=== PATIENT | female | born 1960 | race Caucasian/White ===

== ENCOUNTER 2023-10-29 15:25 | Observation (INO) | payer OTHER, SELFPAY ==
[~2023-10-29] VITALS: Ht 170.2 cm; Wt 74.2 kg
[2023-10-29] MEDS: IPRATROPIUM 0.5MG/ALBUTEROL 2.5MG INH SOL UD 3ML (DUONEB) NEB ONE (16:07)
[2023-10-29 16:15] LABS: ABG BASE EXCESS 1.9 (-2.0-2.0); ABG O2 SATURATION 90.9 % (95.0-99.0); ABG PARTIAL PRESSURE CO2 34.2 mmHg (35.0-45.0); ABG PARTIAL PRESSURE O2 56.8 mmHg (75.0-100.0); ABG pH (ARTERIAL) 7.481 UNITS (7.350-7.450)
[2023-10-29 16:23] LABS: BASO # 0.1 10^3/uL (0.0-0.2); BASO % 0.4 % (0.0-1.0); EOS # 0.1 10^3/uL (0.0-0.5); EOS % 0.4 % (0.0-3.0); HEMATOCRIT 37.8 % (36.0-47.0); HEMOGLOBIN 12.6 g/dl (12.0-15.5); LYMPH % 14.2 % (24.0-44.0); MEAN CORPUSCULAR HEMOGLOBIN 29.7 pg (27.0-33.0); MEAN CORPUSCULAR HGB CONC 33.3 g/dl (32.0-36.5); MEAN CORPUSCULAR VOLUME 89.2 fl (80.0-96.0); MONO % 6.8 % (2.0-8.0); NEUTROPHILS # 11.1 10^3/uL (1.5-8.5); NEUTROPHILS % 77.8 % (36.0-66.0); PLATELET COUNT, AUTOMATED 365 10^3/uL (150-450); RED BLOOD COUNT 4.24 10^6/uL (4.00-5.40); WHITE BLOOD COUNT 14.2 10^3/uL (4.0-10.0)
[2023-10-29 16:41] LABS: INR 1.04; PARTIAL THROMBOPLASTIN TIME 28.6 SECONDS (24.8-34.2); PROTHROMBIN TIME 13.3 SECONDS (12.5-14.5)
[2023-10-29 16:47] LABS: CK-MB VALUE MASS < 1.0 NG/ML (<3.6)
[2023-10-29 16:49] LABS: ALBUMIN 3.5 G/DL (3.2-5.2); ALKALINE PHOSPHATASE 111 U/L (46-116); ALT/SGPT 17 U/L (7.0-40); AST/SGOT 12 U/L (<34); BILIRUBIN,DIRECT 0.2 MG/DL (<0.4); BILIRUBIN,TOTAL 0.5 MG/DL (0.3-1.2); BLOOD UREA NITROGEN 7 MG/DL (9-23); CALCIUM LEVEL 9.3 MG/DL (8.3-10.6); CARBON DIOXIDE LEVEL 28 MMOL/L (20-31); CHLORIDE LEVEL 104 MMOL/L (98-107); CPK CREATINE PHOSPHOKINASE 68 U/L (34-145); CREATININE FOR GFR 0.48 MG/DL (0.55-1.30); GLOMERULAR FILTRATION RATE > 60.0 (>45); GLUCOSE, FASTING 119 MG/DL (74-106); MB/CK RELATIVE INDEX 1.47 (< OR =4); POTASSIUM SERUM 4.1 MMOL/L (3.5-5.1); SODIUM LEVEL 134 MMOL/L (136-145); TOTAL PROTEIN 7.2 G/DL (5.7-8.2)
[2023-10-29 16:51] LABS: FREE T4 1.21 NG/DL (0.89-1.76); THYROID STIMULATING HORMONE 0.456 uIU/ML (0.55-4.78)
[2023-10-29 17:02] LABS: RSV AMPLIFICATION NEGATIVE (NEGATIVE)
[2023-10-29] MEDS ORDERED: IPRATROPIUM 0.5MG/ALBUTEROL 2.5MG INH SOL UD 3ML (DUONEB) NEB PRN (17:30)
[2023-10-29] MEDS ORDERED: ISOVUE-370 76% 100ML VIAL As Ordered ONE (17:49)
[2023-10-29] MEDS ORDERED: methylPREDNISolone 125MG 2ML VIAL IV ONE (18:00)
[2023-10-29 18:02] LABS: PROCALCITONIN <0.04 ng/ml
[2023-10-29] MEDS: methylPREDNISolone 125MG 2ML VIAL IV ONE (18:07)
[2023-10-29] MEDS: cefTRIAXone SOD 2 GM in D5W MINI-BAG PLUS 50 ML IV ONE (18:08)
[2023-10-29] MEDS ORDERED: ALEV220T22 PO (18:10)
[2023-10-29] MEDS: SODIUM CHLORIDE 0.9% 1000ML IV STA (18:10)
[2023-10-29] MEDS ORDERED: HOME MED LIST COMPLETE! XX SCH (18:10)
[2023-10-29] MEDS: AZITHROMYCIN INJ 500 MG, VIAL MATE ADAPTER 1 EACH in NS 250 ML IV ONE (18:10)
[2023-10-29 19:16] VITALS: BP 170/98; TEMP 99.5; O2SAT 93
[2023-10-29] MEDS: IPRATROPIUM 0.5MG/ALBUTEROL 2.5MG INH SOL UD 3ML (DUONEB) NEB SCH (20:42)
[2023-10-29] MEDS ORDERED: ACETAMINOPHEN TAB 650MG DOSE (2X325MG) PO PRN (21:10)
[2023-10-29] MEDS: amLODIPine 5 MG TAB PO ONE (21:17)
[2023-10-30 04:00] VITALS: BP 136/71; TEMP 98.4; O2SAT 90
[2023-10-30 06:06] LABS: HEMATOCRIT 33.4 % (36.0-47.0); HEMOGLOBIN 11.1 g/dl (12.0-15.5); MEAN CORPUSCULAR HEMOGLOBIN 29.6 pg (27.0-33.0); MEAN CORPUSCULAR HGB CONC 33.2 g/dl (32.0-36.5); MEAN CORPUSCULAR VOLUME 89.1 fl (80.0-96.0); PLATELET COUNT, AUTOMATED 344 10^3/uL (150-450); RED BLOOD COUNT 3.75 10^6/uL (4.00-5.40)
[2023-10-30 06:26] LABS: BLOOD UREA NITROGEN 6 MG/DL (9-23); CALCIUM LEVEL 8.3 MG/DL (8.3-10.6); CARBON DIOXIDE LEVEL 25 MMOL/L (20-31); CHLORIDE LEVEL 107 MMOL/L (98-107); CREATININE FOR GFR 0.43 MG/DL (0.55-1.30); GLOMERULAR FILTRATION RATE > 60.0 (>45); GLUCOSE, FASTING 163 MG/DL (74-106); SODIUM LEVEL 139 MMOL/L (136-145)
[2023-10-30] MEDS: ENOXAPARIN 40MG/0.4ML SYRINGE (J1650 PER 10MG) SC SCH (08:03)
[2023-10-30] MEDS: predniSONE 20 MG TAB PO SCH (08:03)
[2023-10-30 08:08] VITALS: BP 135/72
[2023-10-30] MEDS: amLODIPine 5 MG TAB PO SCH (08:08)
[2023-10-30] MEDS ORDERED: PRED10TA2 PO (11:17)
[2023-10-30] MEDS ORDERED: ALBU6.7H6 INH (11:17)
[2023-10-30] MEDS ORDERED: ANOR1AER PO (11:17)
[2023-10-30] MEDS ORDERED: CEFD1CAP9 PO (11:17)
[2023-10-30] MEDS ORDERED: AZIT500T5 PO (11:17)
[2023-10-30] MEDS ORDERED: AMLO1TAB24 PO (11:17)
[2023-10-30] MEDS ORDERED: BLOOKIT XX (11:21)
[2023-10-30] MEDS ORDERED: SYMB80INH INH (12:29)
[2023-10-30] MEDS ORDERED: cefTRIAXone SOD 1 GM in D5W MINI-BAG PLUS 50 ML IV SCH (17:00)
[2023-10-30] MEDS ORDERED: AZITHROMYCIN INJ 500 MG, VIAL MATE ADAPTER 1 EACH in NS 250 ML IV SCH (18:00)
[2023-11-01 14:10] LABS: BODY FLUID CULTURE Not indicated. (.); LEGIONELLA ANTIGEN URINE Negative (Negative); ORGANISM ID Not indicated. (.); SPECIMEN SOURCE Urine (.); URINE STREP PNEUMONIAE ANTIGEN Negative (Negative)
== END 2023-10-30 13:58 | disposition home or self-care (01) ==
LOC: M ED 15:25 → M ED INP 15:26 → M MSPAV 19:00
PROVIDERS: ADMIT Internal Medicine; ATTEND Internal Medicine
DX: J15.69 Pneumonia due to other Gram-negative bacteria (principal); R03.0 Elevated blood-pressure reading, without diagnosis of hypertension; R91.8 Other nonspecific abnormal finding of lung field; R00.0 Tachycardia, unspecified; R06.02 Shortness of breath; R05.9 Cough, unspecified; R09.02 Hypoxemia; F17.200 Nicotine dependence, unspecified, uncomplicated; Z82.3 Family history of stroke; Z82.49 Family history of ischemic heart disease and other diseases of the circulatory system
CPT/HCPCS: 36415; 36600; 71046; 71275; 80048; 80076; 81001; 82550; 82553; 82803; 83605; 83880; 84145; 84439; 84443; 84484; 85025; 85027; 85610; 85730; 87040; 87449; 87631; 87641; 87899; 93005; 93041; 94640; 94760; 96365; 96372; 96375; 99285; J0456; J0696; J1650; J2930; J7512; Q9967

== ENCOUNTER → 2023-12-23 | Outpatient (REF) | payer SELFPAY ==
[~2023-12-23] MED LIST: ALBU6.7H6 INH; ALEV220T22 PO; AMLO1TAB24 PO; ANOR1AER PO; AZIT500T5 PO; BLOOKIT XX; CEFD1CAP9 PO; PRED10TA2 PO; SYMB80INH INH
[2023-12-23 16:40] LABS: BASO # 0.1 10^3/uL (0.0-0.2); EOS # 0.4 10^3/uL (0.0-0.5); EOS % 5.9 % (0.0-3.0); HEMATOCRIT 38.7 % (36.0-47.0); HEMOGLOBIN 12.4 g/dl (12.0-15.5); LYMPH # 2.3 10^3/uL (1.5-5.0); LYMPH % 39.1 % (24.0-44.0); MEAN CORPUSCULAR HEMOGLOBIN 29.2 pg (27.0-33.0); MEAN CORPUSCULAR VOLUME 91.3 fl (80.0-96.0); MONO # 0.6 10^3/uL (0.0-0.8); MONO % 9.9 % (2.0-8.0); NEUTROPHILS # 2.6 10^3/uL (1.5-8.5); NEUTROPHILS % 43.9 % (36.0-66.0); PLATELET COUNT, AUTOMATED 236 10^3/uL (150-450); RED BLOOD COUNT 4.24 10^6/uL (4.00-5.40); WHITE BLOOD COUNT 5.9 10^3/uL (4.0-10.0)
[2023-12-23 16:43] LABS: ALBUMIN 3.3 G/DL (3.2-5.2); ALKALINE PHOSPHATASE 108 U/L (46-116); ALT/SGPT 22 U/L (7.0-40); AST/SGOT 16 U/L (<34); BILIRUBIN,TOTAL 0.3 MG/DL (0.3-1.2); BLOOD UREA NITROGEN 13 MG/DL (9-23); CALCIUM LEVEL 9.8 MG/DL (8.3-10.6); CARBON DIOXIDE LEVEL 30 MMOL/L (20-31); CHLORIDE LEVEL 105 MMOL/L (98-107); CHOLESTEROL LEVEL 213 MG/DL (<200); CHOLESTEROL RISK RATIO 3.02 (<5); GLOMERULAR FILTRATION RATE > 60.0 (>45); GLUCOSE, FASTING 84 MG/DL (74-106); HDL CHOLESTEROL 70.3 MG/DL (>40); LDL CHOLESTEROL 123.9 MG/DL (<100); NON-HDL-C 142.7 MG/DL; POTASSIUM SERUM 4.6 MMOL/L (3.5-5.1); SODIUM LEVEL 140 MMOL/L (136-145); TOTAL PROTEIN 6.3 G/DL (5.7-8.2); TRIGLYCERIDES LEVEL 94 MG/DL (<150)
[2023-12-23 16:44] LABS: TOTAL 25(OH) VITAMIN D 6.9 NG/ML (20.0-100.0)
[2023-12-23 17:09] LABS: HEMOGLOBIN A1c 5.5 % (4.0-6.0)
== END ==
LOC: M LAB REF 16:11
PROVIDERS: ATTEND Nurse Practitioner Family
DX: J18.9 Pneumonia, unspecified organism (principal); E66.3 Overweight; E55.9 Vitamin D deficiency, unspecified

== ENCOUNTER → 2024-02-12 | Outpatient (CLI) | payer MEDICARE | LOC: M PLAIMG 13:30 | PROVIDERS: ATTEND Internal Medicine Pulmonary Disease | DX: R91.8 Other nonspecific abnormal finding of lung field (principal) ==

== ENCOUNTER → 2024-03-25 | Outpatient (CLI) | payer MEDICARE | LOC: M WHC 14:34 → EDUNIT# 03-26 15:00 | PROVIDERS: ATTEND Nurse Practitioner Family | DX: Z12.31 Encounter for screening mammogram for malignant neoplasm of breast (principal) ==

== ENCOUNTER 2024-06-18 08:47 | Day surgery (SDC) | payer MEDICARE ==
[~2024-06-18] VITALS: Ht 170.2 cm; Wt 85.9 kg
[~2024-06-18 08:47] MED LIST changes: +ALBU8.5H INH; +BUDE10.3 INH; +LIDOCAINE 2% 100MG/5ML SDV (FOR ANES.) As Ordered ONE; +NS 250 ML IV ONE; +VITA200031 PO; +VITATAB73 PO; +propofoL 200 MG/20 ML VIAL As Ordered ONE
[2024-06-18] MEDS ORDERED: LABETALOL 100MG/20ML VIAL As Ordered ONE (09:49)
[2024-06-18] MEDS ORDERED: GLYCOPYRROLATE INJ 0.2 MG/ML 2 ML VIAL As Ordered ONE (09:50)
[2024-06-18 10:04] VITALS: TEMP 97.8
[2024-06-18 10:35] VITALS: BP 135/72; O2SAT 97
== END 2024-06-18 10:43 | disposition home or self-care (01) ==
LOC: M OPP 08:47
PROVIDERS: ATTEND Surgery
DX: R19.5 Other fecal abnormalities (principal); K64.1 Second degree hemorrhoids; J44.9 Chronic obstructive pulmonary disease, unspecified; I10 Essential (primary) hypertension; Z79.899 Other long term (current) drug therapy; Z79.51 Long term (current) use of inhaled steroids; Z90.89 Acquired absence of other organs; Z72.0 Tobacco use
CPT/HCPCS: 45378; J1596; J1920

== ENCOUNTER → 2025-01-01 | Outpatient (REF) | payer MEDICARE, OTHER ==
[~2025-01-01] MED LIST changes: -LIDOCAINE 2% 100MG/5ML SDV (FOR ANES.) As Ordered ONE; -NS 250 ML IV ONE; -propofoL 200 MG/20 ML VIAL As Ordered ONE
[2025-01-01 18:49] LABS: BLOOD UREA NITROGEN 10 MG/DL (9-23); CALCIUM LEVEL 9.1 MG/DL (8.3-10.6); CARBON DIOXIDE LEVEL 26 MMOL/L (20-31); CHLORIDE LEVEL 104 MMOL/L (98-107); CHOLESTEROL LEVEL 227 MG/DL (<200); CHOLESTEROL RISK RATIO 2.95 (<5); CREATININE FOR GFR 0.53 MG/DL (0.55-1.30); GLOMERULAR FILTRATION RATE > 90.0 (>45); GLUCOSE, FASTING 101 MG/DL (74-106); HDL CHOLESTEROL 76.8 MG/DL (>40); LDL CHOLESTEROL 133.2 MG/DL (<100); NON-HDL-C 150.2 MG/DL; POTASSIUM SERUM 4.2 MMOL/L (3.5-5.1); SODIUM LEVEL 138 MMOL/L (136-145); TRIGLYCERIDES LEVEL 85 MG/DL (<150)
[2025-01-01 18:51] LABS: BASO # 0.1 10^3/uL (0.0-0.2); BASO % 0.9 % (0.0-1.0); EOS # 0.3 10^3/uL (0.0-0.5); EOS % 4.2 % (0.0-3.0); HEMOGLOBIN 13.6 g/dl (12.0-15.5); LYMPH # 2.4 10^3/uL (1.5-5.0); LYMPH % 35.6 % (24.0-44.0); MEAN CORPUSCULAR HEMOGLOBIN 28.8 pg (27.0-33.0); MEAN CORPUSCULAR HGB CONC 32.4 g/dl (32.0-36.5); MEAN CORPUSCULAR VOLUME 88.8 fl (80.0-96.0); MONO # 0.5 10^3/uL (0.0-0.8); MONO % 7.9 % (2.0-8.0); NEUTROPHILS # 3.4 10^3/uL (1.5-8.5); NEUTROPHILS % 51.2 % (36.0-66.0); PLATELET COUNT, AUTOMATED 273 10^3/uL (150-450); RED BLOOD COUNT 4.73 10^6/uL (4.00-5.40); WHITE BLOOD COUNT 6.6 10^3/uL (4.0-10.0)
[2025-01-01 18:52] LABS: THYROID STIMULATING HORMONE 1.064 uIU/ML (0.55-4.78)
[2025-01-01 18:54] LABS: HEMOGLOBIN A1c 6.1 % (4.0-6.0)
== END ==
LOC: M LAB REF 17:29
PROVIDERS: ATTEND Nurse Practitioner Family
DX: I10 Essential (primary) hypertension (principal); J44.9 Chronic obstructive pulmonary disease, unspecified; E66.3 Overweight; Z79.899 Other long term (current) drug therapy